=== PATIENT | female | born 1975 ===

== ENCOUNTER 2017-06-28 10:14 | Emergency (ER) | payer OTHER ==
[~2017-06-28] VITALS: Ht 160 cm
[2017-06-28] MEDS ORDERED: LOSARTAN POTASS50 MG PO (15:54)
== END 2017-06-28 16:00 | disposition home or self-care (01) ==
LOC: ER 10:14
DX: G43.909 Migraine, unspecified, not intractable, without status migrainosus (principal); I10 Essential (primary) hypertension